=== PATIENT | male | born 1995 | race Caucasian/White ===

== ENCOUNTER 2021-06-03 15:29 | Emergency (ER) | payer OTHER ==
[~2021-06-03] VITALS: Ht 182.9 cm; Wt 115.3 kg
[2021-06-03] MEDS ORDERED: NEOSPORIN OINT 0.9 GM PKT TOP ONE (17:05)
[2021-06-03] MEDS ORDERED: LIDOCAINE 1% MDV 20ML VIAL SC ONE (17:05)
[2021-06-03] MEDS ORDERED: NAPROXEN 250 MG TAB PO ONE (17:35)
[2021-06-03] MEDS ORDERED: ACETAMINOPHEN 500 MG TAB PO ONE (17:35)
[2021-06-03 17:39] VITALS: BP 130/87
== END 2021-06-03 17:55 | disposition home or self-care (01) ==
LOC: M ED 15:29
DX: S01.01XA Laceration without foreign body of scalp, initial encounter (principal); W01.198A Fall on same level from slipping, tripping and stumbling with subsequent striking against other object, initial encounter; Y92.009 Unspecified place in unspecified non-institutional (private) residence as the place of occurrence of the external cause; Y93.9 Activity, unspecified; Y99.9 Unspecified external cause status